=== PATIENT | female | born 1985 | race African-American/Black ===

== ENCOUNTER 2016-08-12 11:24 | Emergency (ER) | payer MEDICAID, OTHER ==
[~2016-08-12] VITALS: Ht 165.1 cm; Wt 85.0 kg
[~2016-08-12 11:24] MED LIST: OXYC-360 PO; SENN1TAB11 PO; Z.0.NO CURRENT MEDS
[2016-08-12 11:25] VITALS: BP 136/78; PULSE 85; RESP 15; TEMP 98.4; O2SAT 98
[2016-08-12 11:59] LABS: BLOOD, URINE NEG (NEG); GLUCOSE,URINE NEG (NEG); KETONE, URINE NEG (NEG); NITRITE,URINE NEG (NEG); SQUAMOUS EPITHELIAL CELL URINE 2 /hpf (0-5); URINE COLOR LIGHT-YELLOW (YELLW/STRAW)
[2016-08-12 12:06] LABS: COMMENT (UR) CULT NOT INDICATED; CULTURE IF INDICATED CULT NOT INDICATED
--- NOTE | 2016-08-12 12:08 | PD ---
HPI Chief Complaint: Complaint Time Seen by Provider: 12:05 Travel History International Travel<30 days: No Contact w/Intl Traveler<30days: No Traveled to known affect area: No History of Present Illness HPI 30-year-old female presents to the emergency Department with complaint of increased urination 2 weeks. Also reports urgency. Denies hematuria, dysuria , low back pain, abdominal pain, nausea, vomiting, fever. Last menstrual period May 2 and reports positive risk . Has not taken any medications or drainage to alleviate her symptoms. No known allergies. Has no other medical complaints. No other modifying factors or associated signs and symptoms. PFSH Past Medical History Influenza Vaccination: Yes ?: Unknown LMP: 07/08/16 : 3 Para: 3 Past Surgical History Section: Yes (3) Social History Alcohol Use: Yes (on occasion) Tobacco Use: No Substance Use: No Allergies-Medications (Allergen,Severity, Reaction): Coded Allergies: No Known Allergies (Verified , 11/11/06) Reported Meds & Prescriptions Reported Meds & Active Scripts Active Reported Argenis-Colace (Senna/Docusate Sodium) 1 Tab Tab 1 Tab PO TIDPRN Percocet (Oxycodone/Acetaminophen) 5 Mg/325 Mg Tab 1-2 Tab PO Q4-6HPRN FOR PAIN No Current Meds (Miscellaneous Medication) Misc Review of Systems Except as stated in HPI: all other systems reviewed are Neg Physical Exam Narrative GENERAL: Well-nourished, well-developed female patient, in no acute distress; afebrile, nontoxic-appearing SKIN: Warm and dry. No rash. HEAD: Atraumatic. Normocephalic. EYES: Pupils equal and round. No scleral icterus. No injection or drainage. ENT: Mucosa pink and moist. NECK: Trachea midline. CARDIOVASCULAR: Regular rate. RESPIRATORY: No accessory muscle use. GASTROINTESTINAL: Abdomen soft, non-tender, nondistended. Hepatic and splenic margins not palpable. Bowel sounds are active 4 quadrants. Bladder nontender and nondistended. MUSCULOSKELETAL: No obvious deformities. No clubbing. No cyanosis. No edema. BACK: No CVA tenderness NEUROLOGICAL: Awake and alert. Oriented 3. No obvious cranial nerve deficits. Motor grossly within normal limits. Normal speech. Moves all extremities. 5/5 strength to all extremities. PSYCHIATRIC: Appropriate mood and affect; insight and judgment normal. Data Data Last Documented VS Vital Signs Date Time Temp Pulse Resp B/P Pulse Ox O2 Delivery O2 Flow Rate FiO2 08/12/16 11:25 98.4 85 15 136/78 98 Orders Urinalysis - C+S If Indicated (08/12/16 11:33) Ed Urine Pregnancytest Poc (08/12/16 11:40) Labs Laboratory Tests Test 08/12/16 11:39 Urine Color LIGHT-YELLOW Urine Turbidity CLEAR Urine pH 8.0 Urine Specific Wood 1.011 Urine Protein NEG mg/dL Urine Glucose (UA) NEG mg/dL Urine Ketones NEG mg/dL Urine Occult Blood NEG Urine Nitrite NEG Urine Bilirubin NEG Urine Urobilinogen LESS THAN 2.0 MG/DL Urine Leukocyte Esterase NEG Urine RBC 1 /hpf Urine WBC 1 /hpf Urine Squamous Epithelial 2 /hpf Cells Microscopic Urinalysis Comment CULT NOT INDICATED MDM Medical Decision Making Medical Screen Exam Complete: Yes Emergency Medical Condition: Yes Medical Record Reviewed: Yes Differential Diagnosis Cystitis, urinary tract infection, pyelonephritis, urinary frequency, Narrative Course 30-year-old female with urinary frequency. Urine negative. Urinalysis ordered. 1210: Urinalysis without signs of infection. Instructed patient to follow up with primary care provider. Patient verbalizes understanding and agreement with treatment plan. Patient is medically cleared and stable for discharge. Discussed reasons to return to the emergency department. Patient agrees with treatment plan. The patients vital signs are stable and the patient is stable for outpatient follow-up and treatment. Patient discharged home, stable and in no acute distress. Diagnosis Primary Impression: Urinary frequency Additional Impression: Negative test Referrals: Primary Care Physician Patient Instructions: General Instructions, Urinary Urgency and Frequency (GEN) Additional Instructions: Drink plenty of fluids Maintain good personal hygiene Follow-up with primary care provider Return to the emergency department immediately with worsening of symptoms Med/Other Pt SpecificInfo: No Meds Exist/No RX given Disposition: 01 DISCHARGE HOME Condition: Stable Mary Sarmiento Aug 12, 2016 12:08
== END 2016-08-12 12:47 | disposition home or self-care (01) ==
LOC: NEPK 11:24
DX: R35.0 Frequency of micturition (principal)
CPT/HCPCS: 81001; 84703; 99283